=== PATIENT | female | born 1970 | race Caucasian/White ===

== ENCOUNTER 2018-10-20 16:10 | Emergency (ER) | payer OTHER ==
[~2018-10-20] VITALS: Ht 157.5 cm; Wt 56.7 kg
[2018-10-20] MEDS ORDERED: XANAX1 MG (16:43)
[2018-10-20] MEDS ORDERED: AMITRIPTYLINE H10 MG (16:43)
[2018-10-20] MEDS ORDERED: ZYRTEC10 M3 (16:43)
== END 2018-10-20 21:13 | disposition home or self-care (01) ==
LOC: ER 16:10
DX: S80.02XA Contusion of left knee, initial encounter (principal); S90.02XA Contusion of left ankle, initial encounter; W18.39XA Other fall on same level, initial encounter; Y93.89 Activity, other specified; Y92.098 Other place in other non-institutional residence as the place of occurrence of the external cause; Y99.8 Other external cause status